=== PATIENT | male | born 1940 | race Caucasian/White ===

== ENCOUNTER 2019-05-05 08:31 | Emergency (ER) | payer MEDICARE ==
[2019-05-05] MEDS ORDERED: ONDANSETRON HCL IV 4 MG/2 ML VIAL IV ONE (08:43)
[2019-05-05] MEDS ORDERED: 0.9 % SODIUM CHLORIDE 1000ML 1,000 ML IV PRN (08:43)
[2019-05-05] MEDS ORDERED: SODIUM CHLORIDE 0.9% 500 ML IV ONE (08:43)
[2019-05-05] MEDS ORDERED: HYDROMORPHONE HCL 2 MG/ML VIAL IVP ONE ×2 (08:47→12:03)
--- NOTE | 2019-05-05 08:53 | Emergency Department Record ---
History of Present Illness - General Chief Complaint: Abdominal Pain Stated Complaint: ABD PAIN Time Seen by Provider: 05/05/19 08:34 Source: Patient Mode of Arrival: Ambulatory Limitations: No limitations - History of Present Illness Initial Comments: Pt presents alone to the ED from home with complaint of abdominal pain over the past 2 days. Pain initially in the mid to upper abd now in the lower right abd area. Pt notes decrease appetite not eating anything yesterday. He has vomited once a day over the past two days, small amounts of fluid, no blood or food. No BM for two days and notes no gas in past 24 hours. Pt is urinating without issu e. Not taking po fluids due to nausea. Hx of GB surgery and bilateral hernia repair 10 years ago. No CP or CHRISTOPHER. 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 Onset/Timin -: Days(s) Location: LLQ, RLQ Radiation: None Migration to: No migration Severity scale (1-10): 2 Quality: Sharp Consistency: Constant Improves With: Nothing Worsens With: Other Associated Symptoms: Denies other symptoms - Related Data Allergies Allergy/AdvReac Type Severity Reaction Status Date / Time codeine Allergy Unknown HYPERSENSIT Unverified 01/09/19 10:26 IVITY Travel Screening - Travel/Exposure Within Last 30 Days Have you traveled within the last 30 days?: No Review of Systems Constitutional: Reports: Weakness. Denies: Chills, Fever Eyes: Denies: Eye discharge, Photophobia ENT: Denies: Congestion, Ear pain Respiratory: Denies: Cough Cardiovascular: Denies: Arrhythmia, Chest pain, Syncope Endocrine: Reports: Fatigue. Denies: Polydipsia, Polyuria Gastrointestinal: Reports: As per HPI, Abdominal pain, Nausea, Vomiting. Denies: Diarrhea, Hematemesis, Hematochezia, Melena Genitourinary: Reports: Incontinence (unable to get to restroom due to pain so lost urine. ). Denies: Dysuria, Frequency Musculoskeletal: Denies: Arthralgia, Back pain Skin: Denies: Bruising, Rash Neurological: Denies: Abnormal gait, Headache, Numbness, Weakness Psychiatric: Denies: Anxiety Hematological/Lymphatic: Reports: Blood Clots. Denies: Anemia Past Medical History - SOCIAL HISTORY Smoking Status: Former smoker - RESPIRATORY Hx Respiratory Disorders: Yes Hx Pulmonary Embolism: Yes Comment:: coumadin - CARDIOVASCULAR Hx Cardio Disorders: Yes Hx Deep Vein Thrombosis: Yes Comment:: DVT - NEURO Hx Neuro Disorders: No - GI Hx GI Disorders: No Hx of Polyps: Yes Comment:: on Lomotil prn loose stools - Hx Genitourinary Disorders: No Hx Prostate Problems: Yes (enlarged) Comment:: recent blood in urine; ? enlarged prostate - ENDOCRINE Hx Endocrine Disorders: No Hx Diabetes: No Hx Thyroid Disease: No - MUSCULOSKELETAL Hx Musculoskeletal Disorders: Yes Hx Arthritis: Yes Comment:: right shoulder torn rotator cuff - PSYCH Hx Psych Problems: No - HEMATOLOGY/ONCOLOGY Hx Hematology/Oncology Disorders: Yes Hx Cancer: Yes (skin) Comment:: on warfarin-hx DVT & PE Family Medical History Any Significant Family History?: Yes Hx Heart Disease: Father, Mother, Brother/Sister *Heart Comment: mom dad brother- Hx HTN: Father, Mother, Brother/Sister Physical Exam - General General Appearance: Alert, Oriented x3, Cooperative, Moderate distress - Head Head exam: Atraumatic - Eye Eye exam: PERRL, EOMI. negative: Nystagmus - ENT ENT exam: Mucous membranes dry, Normal external ear exam, TM's normal bilater ally Nasal Exam: Normal inspection Mouth exam: Normal external inspection - Neck Neck exam: Normal inspection, Full ROM. negative: Tenderness, Thyromegaly - Respiratory Respiratory exam: Normal lung sounds bilaterally. negative: Respiratory distress, Rhonchi - Cardiovascular Cardiovascular Exam: Regular rate, Normal rhythm. negative: Tachycardia Peripheral Pulses: 2+: Radial (R), Radial (L) - GI/Abdominal GI/Abdominal exam: Distended, Guarding, Hypoactive bowel sounds, Rebound, Tenderness. negative: Mass - Rectal Rectal exam: Heme (-) stool, Normal rectal tone. negative: Fecal impaction, Mass - exam: negative: Circumcision, Scrotal swelling, Testicular tenderness, Urethral discharge - Extremities Extremities exam: Normal inspection. negative: Tenderness - Back Back exam: Reports: Normal inspection. Denies: Paraspinal tenderness - Neurological Neurological exam: Alert, Normal gait, Oriented X3 - Psychiatric Psychiatric exam: Normal affect, Normal mood - Skin Skin exam: Normal color. negative: Rash Course Vital Signs 05/05/19 08:35 Temperature 101.7 F H Pulse Rate 84 Respiratory 20 Rate Blood Pressure 139/85 Pulse Ox 95 - Reevaluation(s) Reevaluation #1: 05/05/19 08:55 Seen and exam. NPO. IV fluid bolus and labs ordered with coags and type and screen. CT ordered of ABD. EKG and CXR all pending. Temp 101.6 Reevaluation #2: 05/05/19 09:35 CT done, await read. Tyl IV for fever, Labs reviewed. INR 1.2. Invanze ordered. Reevaluation #3: 05/05/19 10:24 CT with Perf. Appy with extra luminal air and free fluid per radiologist. Discussed with Dr. Santizo and plan for IV antibiotic and transfer to [facility] for further care. Plan for direct admission. Pt remains pain free with temp 98. Plan for transfer. Pt aware and agrees with plan. Phone provided to call son. Procedures - EKG Initial Date: 05/05/19 Time: 09:35 EKG: Normal EKG (LAFB, NSR at 79) Medical Decision Making - Management Options MDM Management: Additional Work-up Planned (e.g. ADM/Transfer/OP Study) - Data Complexity MDM Data: Labs Ordered and/or Reviewed, X-Ray Ordered and/or Reviewed, EKG Ordered and/or Reviewed, Independent Visualization of Image, Tracing, or Specime n, Discussion of Test Results With Performing Physician - Lab Data Result diagrams: 05/05/19 08:45 05/05/19 08:45 - EKG Data -: EKG Interpreted by Me EKG: Normal EKG - Radiology Data Radiology results: Report reviewed, Image reviewed - Medical Decision Making Discussed with Surgeon. Transfer to [facility] Disposition Disposition: Transfer Clinical Impression: Acute appendicitis with rupture, Fever Disposition: Acute Care Hospital Transfer Transfer To: [facility] Reason For Transfer: Surgical care Accepting Physician: Dr. Santizo Time Discussed w/Accepting Physician: 10: Condition: (3) Guarded Forms: Patient Portal Access Time of Disposition: 10:27 Quality - Quality Measures Quality Measures: N/A - Blood Pressure Screening Does Patient Have Any of the Following: No Blood Pressure Classification: Pre-Hypertensive BP Reading Systolic Measurement: 139 Diastolic Measurement: 85 Screening for High Blood Pressure: < Pre-Hypertensive BP, F/U Documented > [G8950] Pre-Hypertensive Follow-up Interventions: Follow-up with rescreen every year.
[2019-05-05] MEDS ORDERED: ACETAMINOPHEN 1,000 MG/100 ML BTL IVPB ONE (08:58)
[2019-05-05 08:59] LABS: HEMOGLOBIN 14.4 gm/dl (14.0-18.0); MEAN CELL VOLUME 87.3 fl (81-97); MEAN CORPUSCULAR HEMOGLOBIN 29.9 pg (27-33); MEAN CORPUSCULAR HGB CONC 34.3 g/dl (32-36); MEAN PLATELET VOLUME 9.4 fl (7.4-10.4); PLATELET COUNT 165 K/uL (130-400); RED BLOOD COUNT 4.81 M/uL (4.40-5.70); RED CELL DISTRIBUTION WIDTH 13.8 % (11.5-14.5); WHITE BLOOD COUNT W/O DIFF 11.6 K/uL (4.2-12.2)
[2019-05-05 09:11] LABS: PLATELET ESTIMATE NORMAL (NORMAL)
[2019-05-05 09:14] LABS: INR 1.2; PARTIAL THROMBOPLASTIN TIME 26.8 SECONDS (24.5-39.1); PROTHROMBIN TIME (PATIENT) 12.4 SECONDS (9.5-12.1)
[2019-05-05 09:15] LABS: BLOOD UREA NITROGEN 17 mg/dL (8-23)
[2019-05-05 09:16] LABS: EST GLOMERULAR FILTRATION RATE > 60 mL/min; TOTAL PROTEIN 7.2 g/dL (6.6-8.7)
[2019-05-05 09:18] LABS: GLUCOSE,RANDOM 137 mg/dL (74-109)
[2019-05-05 09:21] LABS: ALB/GLOB RATIO 1.4 (1.1-1.8); ALBUMIN 4.2 g/dL (4.0-5.0); ALKALINE PHOSPHATASE 60 U/L (40-129); ALT/SGPT 13 U/L (<41); AST/SGOT 18 U/L (10.0-50.0)
[2019-05-05] MEDS ORDERED: ERTAPENEM SODIUM 1 G in 0.9 % SODIUM CHLORIDE 100ML 100 ML IVPB ONE (09:27)
[2019-05-05 09:44] LABS: ABO GROUP A; ANTIBODY SCREEN NEGATIVE (NEGATIVE); RH TYPE NEGATIVE
[2019-05-05 10:56] LABS: URINE APPEARANCE CLEAR; URINE BILIRUBIN NEGATIVE (NEGATIVE); URINE BLOOD LARGE (NEGATIVE); URINE GLUCOSE (UA) NEGATIVE (NEGATIVE); URINE KETONE NEGATIVE (NEGATIVE); URINE LEUKOCYTE ESTERASE NEGATIVE (NEGATIVE); URINE NITRITE NEGATIVE (NEGATIVE); URINE UROBILINOGEN 0.2 E.U./dL (0.20 - 1.00)
[2019-05-05 10:57] LABS: URINE COLOR DARK YELLOW
[2019-05-05 11:06] LABS: URINE BACTERIA NONE SEEN; URINE EPITHELIAL CELLS NONE SEEN (FEW); URINE WBC NONE SEEN (0-2/hpf)
[2019-05-05 11:07] LABS: URINE AMORPHOUS SEDIMENT 1+
--- NOTE | 2019-05-06 05:31 | RADIOLOGY REPORT ---
EXAM: CHEST, TWO VIEWS HISTORY: RIGHT LOWER QUADRANT PAIN AND FEVER. TECHNIQUE: PA and lateral views of the chest were obtained. Comparison: Two view chest 01/17/10. FINDINGS: The heart size is within normal limits. On the frontal view there appears to be some new infiltrate in the right base compared to the prior study. No definite acute infiltrate seen on the left. No definite pleural effusion or pneumothorax evident. Prominent spurring in the thoracic spine. Postop changes right shoulder. IMPRESSION: 1. SOME NEW INFILTRATE IN THE RIGHT BASE COMPARED WITH 01/17/10. THIS IS PROBABLY WITHIN THE RIGHT MIDDLE LOBE. 2. PROMINENT SPURRING IN THE THORACIC SPINE AND POSTOP CHANGES RIGHT SHOULDER. JOB NUMBER: [id number] [facility]
--- NOTE | 2019-05-06 05:45 | CT SCAN REPORT ---
EXAM: EMERGENCY CT SCAN OF THE ABDOMEN AND PELVIS WITHOUT CONTRAST HISTORY: RIGHT LOWER QUADRANT ABDOMINAL PAIN, FEVER, NAUSEA AND VOMITING. PRIOR CHOLECYSTECTOMY, DOUBLE HERNIA SURGERY. TECHNIQUE: Axial CT scan of the abdomen and pelvis was obtained without oral or IV contrast at the referring physician's request. Comparison: CT of the abdomen and pelvis with contrast dated 02/15/16. FINDINGS: The gallbladder is again noted to be surgically absent. Apparent low anterior abdominal wall hernia repair as previously noted. No intrarenal calculi identified on either side. No hydronephrosis or hydroureter is seen. As such the nondilated ureters are somewhat difficult to follow in their entire course throughout the retroperitoneum and pelvis in their nondilated state, but no definite ureteral calculus seen on either side and no bladder calculus evident. There is enlargement of the prostate also noted previously where the prostate previously measured at about 4.7 x 5.4 cm and today measuring about 4.5 x 5.8 cm. Correlation with serum PSA and physical exam suggested. Evaluation of the bowel and viscera quite limited without oral or IV contrast. Given this limitation, no definite hepatic, splenic, adrenal, or pancreatic mass evident with some relatively diffuse fatty infiltration of the pancreas evident. No definite renal mass identified on either side. There does appear to be an approximately 8 mm rounded calcification in the right lower quadrant which is likely a calcified appendicolith. In addition, distal to the level of the appendicolith, the appendix appears dilated up to approximately 1.6 cm in size with prominent adjacent hazy density consistent with acute appendicitis. In addition, there appears to be a small amount of extraluminal air in the right lower quadrant probably representing appendiceal perforation. Some thickening in the fascial planes of the right lower quadrant, nonspecific inflammatory finding likely in this case related to the acute appendicitis as well. Minor diverticulosis in the proximal colon, but the inflammatory findings appear to be related to appendicitis rather than ascending colon diverticulitis. There is a small amount of free fluid in the pelvis. Some bibasilar streaky atelectasis or infiltrate. Prominent spurring in the lower thoracic and upper lumbar spine. Multilevel degenerative disk disease in the lumbar spine as well with some prominent facet joint arthropathy in the lower lumbar spine. Some coronary artery calcification is noted. IMPRESSION: 1. FINDINGS CONSISTENT WITH ACUTE APPENDICITIS DESCRIBED ABOVE INCLUDING AN APPENDICOLITH WELL LIKELY APPENDICEAL PERFORATION. 2. NO DEFINITE URINARY TRACT CALCULI OR HYDRONEPHROSIS EVIDENT. ENLARGED PROSTATE. 3. MILD DIVERTICULOSIS IN THE PROXIMAL COLON. 4. SOME BIBASILAR STREAKY ATELECTASIS OR INFILTRATE. 5. PROMINENT DEGENERATIVE CHANGES IN THE SPINE. 6. SOME CORONARY ARTERY CALCIFICATION. 7. SOMEWHAT ATROPHIC APPEARANCE OF THE PANCREAS. JOB NUMBER: [id number] [facility]
== END 2019-05-05 13:44 | disposition short-term general hospital (02) ==
LOC: ER 08:31
DX: K35.32 Acute appendicitis with perforation, localized peritonitis, and gangrene, without abscess (principal); R11.10 Vomiting, unspecified; Z86.711 Personal history of pulmonary embolism; Z79.01 Long term (current) use of anticoagulants; Z87.891 Personal history of nicotine dependence; R50.9 Fever, unspecified
CPT/HCPCS: 71046; 74176; 80053; 81001; 85027; 85610; 85730; 86850; 86900; 86901; 93005; 93010; 96365; 96366; 96375; 96376; 99285; J2405

== ENCOUNTER 2019-05-10 11:04 | Emergency (ER) | payer MEDICARE ==
[2019-05-10] MEDS ORDERED: 0.9 % SODIUM CHLORIDE 1000ML 1,000 ML IV PRN (11:55)
--- NOTE | 2019-05-10 12:03 | Emergency Department Record ---
History of Present Illness - General Chief Complaint: Difficulty Breathing Stated Complaint: SOB Time Seen by Provider: 05/10/19 11:49 Source: Patient, RN notes reviewed Mode of Arrival: Ambulatory - History of Present Illness Initial Comments: patient had a perforated appendectomy surgery 5 days ago at [facility] and dischrged yesterday and last night had chilles and daughter is worried he may have a PE and he is SOB same as yesterday post surgery and pulse ox good today and they are restarting coumadin with a lovenox bridge BID for one week. Incisions look good and abd slightly tender. Not air hungry. no wheezing Onset/Timin -: Days(s) Severity: Mild Severity scale (1-10): 4 Quality: Aching Consistency: Constant Improves With: Nothing Worsens With: Exertion Context: Other - Related Data Home Medications Medication Instructions Recorded Confirmed Last Taken Amoxicillin/Potassium Clav 1 tab PO TID 05/10/19 05/10/19 1 Day Ago [Augmentin 875-125 Tablet] ~05/09/19 Enoxaparin Sodium [Lovenox] 80 mg SQ BID 05/10/19 05/10/19 1 Day Ago ~05/09/19 Allergies Allergy/AdvReac Type Severity Reaction Status Date / Time codeine Allergy Unknown HYPERSENSIT Verified 05/10/19 11:20 IVITY Travel Screening - Travel/Exposure Within Last 30 Days Have you traveled within the last 30 days?: No - Travel/Exposure Within Last Year Have you traveled outside the [place] in the last year?: No - Additonal Travel Details Have you been exposed to anyone with a communicable illness?: No - Travel Symptoms Symptom Screening: None Review of Systems Reviewed: No additional complaints except as noted below Constitutional: Reports: As per HPI. Denies: Chills, Fever, Malaise, Night sweats, Weakness, Weight change Eyes: Reports: As per HPI. Denies: Eye discharge, Eye pain, Photophobia, Vision change ENT: Reports: As per HPI. Denies: Congestion, Dental pain, Ear pain, Epistaxis, Hearing loss, Throat pain Respiratory: Reports: As per HPI. Denies: Cough, Dyspnea, Hemoptysis, Stridor, Wheezes Cardiovascular: Reports: As per HPI. Denies: Arrhythmia, Chest pain, Dyspnea on exertion, Edema, Murmurs, Orthopnea, Palpitations, Paroxysmal nocturnal dyspnea, Rheumatic Fever, Syncope Endocrine: Reports: As per HPI. Denies: Fatigue, Heat or cold intolerance, Polydipsia, Polyuria Gastrointestinal: Reports: As per HPI. Denies: Abdominal pain, Constipation, Diarrhea, Hematemesis, Hematochezia, Melena, Nausea, Vomiting Genitourinary: Reports: As per HPI. Denies: Dysuria, Frequency, Hematuria, Incontinence, Retention, Testicular pain, Testicular mass, Urgency Musculoskeletal: Reports: As per HPI. Denies: Arthralgia, Back pain, Gout, Joint swelling, Myalgia, Neck pain Skin: Reports: As per HPI. Denies: Bruising, Change in color, Change in hair/nails, Lesions, Pruritus, Rash Neurological: Reports: As per HPI. Denies: Abnormal gait, Confusion, Headache, Numbness, Paresthesias, Seizure, Tingling, Tremors, Vertigo, Weakness Psychiatric: Reports: As per HPI. Denies: Anxiety, Auditory hallucinations, Depression, Homicidal thoughts, Suicidal thoughts, Visual hallucinations Hematological/Lymphatic: Reports: As per HPI. Denies: Anemia, Blood Clots, Easy bleeding, Easy bruising, Swollen glands Past Medical History - SOCIAL HISTORY Smoking Status: Former smoker Alcohol Use: None Drug Use: None - RESPIRATORY Hx Respiratory Disorders: Yes Hx Pulmonary Embolism: Yes Comment:: coumadin - CARDIOVASCULAR Hx Cardio Disorders: Yes Hx Deep Vein Thrombosis: Yes Comment:: DVT - NEURO Hx Neuro Disorders: No - GI Hx GI Disorders: No Hx of Polyps: Yes Comment:: on Lomotil prn loose stools - Hx Genitourinary Disorders: No Hx Prostate Problems: Yes (enlarged) Comment:: recent blood in urine; ? enlarged prostate - ENDOCRINE Hx Endocrine Disorders: No Hx Diabetes: No Hx Thyroid Disease: No - MUSCULOSKELETAL Hx Musculoskeletal Disorders: Yes Hx Arthritis: Yes Comment:: right shoulder torn rotator cuff - PSYCH Hx Psych Problems: No - HEMATOLOGY/ONCOLOGY Hx Hematology/Oncology Disorders: Yes Hx Cancer: Yes (skin) Comment:: on warfarin-hx DVT & PE Family Medical History Any Significant Family History?: Yes Hx Heart Disease: Father, Mother, Brother/Sister *Heart Comment: mom dad brother- Hx HTN: Father, Mother, Brother/Sister Physical Exam - General General Appearance: Alert, Oriented x3, Cooperative, No acute distress - Head Head exam: Normal inspection - Eye Eye exam: Normal appearance, PERRL Pupils: Normal accommodation - ENT ENT exam: Normal exam, Mucous membranes moist, Normal external ear exam, Normal orophraynx, TM's normal bilaterally Ear exam: Normal external inspection. negative: External canal tenderness Nasal Exam: Normal inspection. negative: Discharge, Sinus tenderness Mouth exam: Normal external inspection, Tongue normal Teeth exam: Normal inspection. negative: Dental caries Throat exam: Normal inspection. negative: Tonsillar erythema, Tonsillar exudate - Neck Neck exam: Normal inspection, Full ROM. negative: Tenderness - Respiratory Respiratory exam: Normal lung sounds bilaterally. negative: Respiratory distress - Cardiovascular Cardiovascular Exam: Regular rate, Normal rhythm, Normal heart sounds - GI/Abdominal GI/Abdominal exam: Soft, Normal bowel sounds, Tenderness (right lower quad lap surgery) - Rectal Rectal exam: Deferred - exam: Deferred - Extremities Extremities exam: Normal inspection, Full ROM, Normal capillary refill. negative: Tenderness - Back Back exam: Reports: Normal inspection, Full ROM. 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 05/10/19 14:24 Medical Decision Making - Data Complexity MDM Data: Labs Ordered and/or Reviewed (PT 1.7 ), X-Ray Ordered and/or Reviewed (CTA bilateral chronic changes of PE no acute PE changes and bilateral lower lobe consolidation and small pleural effusion) - Lab Data Result diagrams: 05/10/19 11:25 05/10/19 11:25 Disposition Clinical Impression: Dyspnea Qualifiers: Dyspnea type: unspecified Qualified Code(s): R06.00 - Dyspnea, unspecified Pneumonia Qualifiers: Pneumonia type: due to unspecified organism Laterality: bilateral Lung location: lower lobe of lung Qualified Code(s): J18.1 - Lobar pneumonia, unspecified organism Disposition: Home, Self-Care Condition: (1) Good Instructions: Dyspnea (ED), Bacterial Pneumonia (ED) Additional Instructions: continue augmentin 500 mg three times aday continue coumadin as scheduled continue lovenox as scheduled return to ED if breathing gets worse see Dr Jeffrey in 4 days on Forms: Patient Portal Access Time of Disposition: 14:32 Quality - Quality Measures Quality Measures: N/A - Blood Pressure Screening Does Patient Have Any of the Following: No Blood Pressure Classification: Hypertensive Reading Systolic Measurement: 147 Diastolic Measurement: 73 Screening for High Blood Pressure: < Pre-Hypertensive BP, F/U Documented > [G8950] Pre-Hypertensive Follow-up Interventions: Referral to alternative/primary care provider.
[2019-05-10 12:16] LABS: ABSOLUTE NEUTROPHIL COUNT 3.83; BASO % 0.5 % (0-6); EOS % 2.8 % (0-6); GRAN % 66.4 % (47-80); HEMATOCRIT 39.1 % (42.0-52.0); HEMOGLOBIN 12.8 gm/dl (14.0-18.0); LYMPH % 21.8 % (16-45); MEAN CELL VOLUME 88.9 fl (81-97); MEAN CORPUSCULAR HGB CONC 32.7 g/dl (32-36); MEAN PLATELET VOLUME 10.8 fl (7.4-10.4); MONO % 8.5 % (0-9); PLATELET COUNT 222 K/uL (130-400); RED CELL DISTRIBUTION WIDTH 13.9 % (11.5-14.5); WHITE BLOOD COUNT W/O DIFF 5.8 K/uL (4.2-12.2)
[2019-05-10 12:29] LABS: INR 1.7; PROTHROMBIN TIME (PATIENT) 16.7 SECONDS (9.5-12.1)
[2019-05-10 12:30] LABS: BLOOD UREA NITROGEN 8 mg/dL (8-23)
[2019-05-10 12:31] LABS: CREATININE 0.8 mg/dL (0.7-1.2); EST GLOMERULAR FILTRATION RATE > 60 mL/min
[2019-05-10 12:33] LABS: GLUCOSE,RANDOM 104 mg/dL (74-109)
[2019-05-10 13:01] LABS: URINE APPEARANCE CLEAR; URINE BILIRUBIN NEGATIVE (NEGATIVE); URINE BLOOD TRACE-I (NEGATIVE); URINE COLOR YELLOW; URINE GLUCOSE (UA) NEGATIVE (NEGATIVE); URINE KETONE NEGATIVE (NEGATIVE); URINE LEUKOCYTE ESTERASE NEGATIVE (NEGATIVE); URINE NITRITE NEGATIVE (NEGATIVE); URINE PROTEIN NEGATIVE (NEGATIVE); URINE UROBILINOGEN 0.2 E.U./dL (0.20 - 1.00)
[2019-05-10 13:06] LABS: URINE RBC RARE (NONE SEEN)
[2019-05-10 13:07] LABS: URINE BACTERIA NONE SEEN; URINE EPITHELIAL CELLS NONE SEEN (FEW); URINE WBC NONE SEEN (0-2/hpf)
--- NOTE | 2019-05-11 23:14 | CT ANGIOGRAM REPORT ---
EXAM: CT ANGIOGRAM CHEST CTA w contrast HISTORY: SHORTNESS OF BREATH. HISTORY OF RECENT SURGERY. CONCERN FOR PULMONARY EMBOLISM. TECHNIQUE: Helical CT angiogram of the thorax obtained after the administration of intravenous contrast, the type and amount specified in the patient's medical record. Coronal maximum-intensity projection images obtained. COMPARISON: Lung bases from CT abdomen without contrast 05/05/2019. FINDINGS: Linear filling defects are present in the segmental and subsegmental pulmonary arteries of both lower lobes and the right middle lobe. No occlusive filling defects. No filling defects in the main or branch pulmonary arteries. Aorta has normal caliber. No dissection. Lung parenchyma shows bilateral lower lobe consolidation in the interim. Small bilateral pleural effusions have developed. Cardiac chambers show mild right atrial enlargement. No pericardial effusion. No pneumothorax. Limited images of the upper abdomen are unremarkable. Bony structures show mild kyphosis of the thoracic spine. Postoperative changes in the right humeral head. IMPRESSION: 1. 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 NO ACUTE PULMONARY EMBOLISM. CONSIDER FOLLOW-UP WITH CT ANGIOGRAM IN THREE MONTHS. 2. BILATERAL LOWER LOBE CONSOLIDATION AND SMALL PLEURAL EFFUSIONS. JOB NUMBER: [id number] [facility]
== END 2019-05-10 14:47 | disposition home or self-care (01) ==
LOC: ER 11:04
DX: J18.1 Lobar pneumonia, unspecified organism (principal); R06.00 Dyspnea, unspecified; Z79.01 Long term (current) use of anticoagulants; Z86.718 Personal history of other venous thrombosis and embolism; Z86.711 Personal history of pulmonary embolism; Z98.890 Other specified postprocedural states
CPT/HCPCS: 99284 ×2; 85025; 85610; 80048; 81001; 71275; Q9967